=== PATIENT | male | born 1970 | race Caucasian/White ===

== ENCOUNTER 2017-10-03 11:10 | Inpatient (IN) ==
[2017-10-03] MEDS ORDERED: SODIUM CHLORIDE 1,000 ML IV STA (11:18)
[2017-10-03] MEDS ORDERED: DILAUDID 2 MG/ML SYRINGE IVP STA (11:19)
[2017-10-03] MEDS ORDERED: ZOFRAN 4 MG/2 ML IVP STA (11:19)
[2017-10-03 11:36] LABS: BASOPHILS # (AUTO) 0.1 K/uL (0-0.2); BASOPHILS % (AUTO) 0.5 % (0.0-3.0); EOSINOPHILS # (AUTO) 0.5 K/ul (0.0-0.7); EOSINOPHILS % (AUTO) 4.7 % (0.0-7.0); HEMATOCRIT 49.5 % (42.0-52.0); HEMOGLOBIN 16.7 g/dl (14.0-18.0); IMMATURE GRANULOCYTE % (AUTO) 0.3 % (0.0-5.0); LYMPHOCYTES # (AUTO) 2.4 K/uL (0.60-3.4); LYMPHOCYTES % (AUTO) 23.6 (10.0-50.0); MEAN CORPUSCULAR HEMOGLOBIN 29.1 pg (27.0-31.0); MEAN CORPUSCULAR HGB CONC 33.7 (31.8-35.4); MEAN CORPUSCULAR VOLUME 86.2 fl (80.0-94.0); MONOCYTES # (AUTO) 0.6 K/uL (0.4-2.0); MONOCYTES % (AUTO) 6.1 (0-10); NEUTROPHILS # (AUTO) 6.6 K/ul (2.0-6.9); NEUTROPHILS % (AUTO) 64.8; PLATELET COUNT 316 10^3/uL (140-440); RED BLOOD COUNT 5.74 10^6/ul (4.70-6.10); WHITE BLOOD COUNT 10.16 K/ul (4.2-10.2)
[2017-10-03 11:59] LABS: ALBUMIN 3.5 g/dL (3.4-5.0); ALBUMIN/GLOBULIN RATIO 0.88; ANION GAP 13.3; BILIRUBIN,TOTAL 0.4 mg/dL (0.00-1.20); BUN/CREATININE RATIO 12.87; CREATININE 1.01 mg/dL (0.60-1.10); POTASSIUM 4.3 mmol/L (3.5-5.1); TOTAL PROTEIN 7.5 g/dL (6.4-8.2)
[2017-10-03 12:06] LABS: CREATINE KINASE 98 U/L; ERYTHROCYTE SEDIMENTATION RATE 11 mm/hr (0-15); ESR INTERNAL QC INTERNAL QC VALID
[2017-10-03] MEDS ORDERED: MORPHINE 2 MG/ML SYRINGE IVP STA (12:33)
[2017-10-03 12:38] LABS: ADD URINE MICROSCOPIC YES; BILIRUBIN,URINE Negative (NEGATIVE); KETONES,URINE Negative (NEGATIVE); LEUKOCYTE ESTERASE ,URINE Negative (NEGATIVE); NITRITE,URINE Negative (NEGATIVE); PH,URINE 5.5 (5-9); PROTEIN,URINE Negative (NEGATIVE); URINE, BLOOD Trace-lysed (NEGATIVE)
--- NOTE | 2017-10-03 13:06 | CT ---
EXAM: CTA chest with contrast using PE protocol. TECHNIQUE: Helical CTA of the chest was performed with contrast in axial plane with coronal and sagit ranjeet reconstructions and separate work station 3-D renderings. COMPARISON: None HISTORY: Chest pain. Elevated D-dimer FINDINGS: There are no filling defects in the pulmonary arteries to the level of the subsegmental branches. The re is no sign of ventricular strain. There is a focal area of consolidation seen in the lateral aspec t of the right lower lobe. There is a small left-sided effusion with some associated atelectasis. T here is no pathologic supraclavicular, axillary, mediastinal or hilar adenopathy. There is no pericardial effusion or pneumothorax. The aorta demonstrates mild atherosclerotic calcifi cations with no dissection or aneurysm. Upper abdomen per CT abdomen pelvis report today. There are bilateral right renal arteries. There are no acute osseous abnormalities. IMPRESSION: 1. No evidence for pulmonary embolus. 2. Patchy area of consolidation in the right lower lobe and small left pleural effusion.
--- NOTE | 2017-10-03 13:11 | CT ---
EXAM: CT abdomen pelvis with contrast TECHNIQUE: Helical axial CT of the abdomen and pelvis was performed with contrast with coronal and s agittal reconstructions. COMPARISON: CT angiogram of the chest from today HISTORY: Left upper quadrant pain FINDINGS: There is no acute abnormality in the abdomen or pelvis.. Specifically there is no mesenteric inflamma tion, free air, free fluid or bowel wall thickening or edema or pathologic lymph nodes or obstruction or ileus. The liver, spleen, pancreas,and adrenal glands show no acute abnormality. There is a consolidation i n the right lower lung field laterally as well as a left-sided effusion with some atelectasis. There is no hiatal hernia. The gallbladder is normal with no stones or inflammation. There is no biliary o r pancreatic ductal dilatation. There are no suspicious renal masses or large cysts and no hydronephrosis. There are no kidney stones . Both ureters demonstrate normal course and caliber. There is no filling defect in the urinary blad bryant. The right kidney demonstrates atrophy and extensive lobulation probably on the basis of chronic scarring or previous infection. There is a small cyst in the mid pole left kidney. There is prompt and symmetric renal uptake and excretion of contrast bilaterally. The appendix is retrocecal and contacts the tip of the liver. There are no colonic diverticula. Ther e are no abdominal wall hernias. There is advanced calcific atherosclerosis of the aorta and iliac ve ssels. There is no aneurysm. There are no acute osseous abnormalities. There is a fat-containing ing uinal hernia on the right. IMPRESSION: 1. No acute abnormality in the abdomen or pelvis. 2. Left-sided effusion and atelectasis. This may be related to stated history of left upper quadran t pain. 3. Small right basilar consolidation. 4. Retrocecal appendix which contacts the liver. If the patient ever develops appendicitis patient could present with atypical symptoms such as right upper quadrant pain as a result. 5. Atrophy and scarring of the right kidney perhaps due to prior recurrent infection. 6. Atherosclerosis.
--- NOTE | 2017-10-03 13:30 | ED.PDOC ---
General ED Provider: Dr. MAURICIO RIVERA-ER Chief Complaint: Abdominal Pain Stated Complaint: hes been coughing --hurting left upper quad--denies fevr or chills Time Seen by Physician: 11:15 Mode of Arrival: Walk-In Information Source: Patient, Family Exam Limitations: No limitations Nursing and Triage Documentation Reviewed and Agree: Yes Respiratory Complaint Exam - Respiratory Complaint/Exam Onset/Duration: 48 hrs Symptoms Are: Still present Timing: Constant Initial Severity: Mild Current Severity: Moderate Location: Chest Character: Reports: Non-productive cough Alleviating: Reports: None Associated Signs and Symptoms: Reports: Pleuritic chest pain, URI. Denies: Rapid breathing, Dyspnea, Fever, Chills, Chest pain, Wheezing, Hemoptysis, Dizziness, Calf pain, Calf swelling, Edema, Nasal congestion, Hoarseness, Sinus discomfort, Vomiting, Sore throat, Weight loss, Decreased oral intake, Increased thirst, Increased appetite, Increased urination History of Healthcare-Acquired Pneumonia: No Status Asthmaticus Risk Factors: Reports: None Home Oxygen Use: No Recent Stress Test: No Recent Echo/LV Function: No Current Antibiotic Use: No Current Asthma Medication Use: No Respiratory Distress: None Inadequate Respiratory Effort: No Dysphagia Present: No Stridor Present: No JVD Present: No Accessory Muscle Use: No Retractions: Not Present Diminished Breath Sounds: No Sinus Tenderness: None Grunting Respirations: No Kussmaul Respirations: No Differential Diagnoses: Pneumonia Non-Traumatic Chest Pain Syncope: EKG Performed Review of Systems - Review Of Systems Constitutional: Reports: No symptoms Eyes: Reports: No symptoms Ears, Nose, Mouth, Throat: Reports: No symptoms Respiratory: Reports: Cough, Short of air Cardiac: Reports: No symptoms GI: Reports: Abdominal pain : Reports: No symptoms Musculoskeletal: Reports: No symptoms Skin: Reports: No symptoms Neurological: Reports: No symptoms Endocrine: Reports: No symptoms Hematologic/Lymphatic: Reports: No symptoms All Other Systems: Reviewed and Negative Past Medical History - Past Medical History Previously Healthy: Yes Endocrine: Reports: None Cardiovascular: Reports: None Respiratory: Reports: None Hematological: Reports: None Gastrointestinal: Reports: None Genitourinary: Reports: None Neuro/Psych: Reports: None Musculoskeletal: Reports: None Cancer: Reports: None - Surgical History General Surgical History: Reports: None - Family History Family History: Reports: None - Social History Smoking Status: Current every day smoker Hx Substance Use: No Alcohol Screening: None Lives: With family Physical Exam - Physical Exam Appearance: Well-appearing, No pain distress, Well-nourished Pain Distress: Mild Eyes: SHRAVAN, EOMI, Conjunctiva clear ENT: Ears normal, Nose normal, Oropharynx normal Neck: Supple Respiratory: Crackles, Rhonchi Cardiovascular: RRR GI/: Soft, Nontender, No masses, Bowel sounds normal, No Organomegaly Musculoskeletal: Normal strength Skin: Warm, Dry, Normal color Neurological: Sensation intact, Motor intact, Reflexes intact, Cranial nerves intact, Alert, Oriented Psychiatric: Affect appropriate, Mood appropriate Interpretation - Radiology Interpretation Radiology Interpretation By: Radiologist Radiology Results: Positive Exam Interpreted: CT Scan - EKG Interpretation Time of EKG #1: 14:15 Rate: Normal Rhythm: Sinus Ectopy: None [place]: NL ST Segment: Normal Interpretation: nsr Re-Evaluation - Re-Evaluation Time of Re-Evaluation: 14:16 Status: Improved Vital Signs Stable: Yes Pain Level: 2 Appearance: NAD Lungs: Clear Skin: Warm and Dry Neuro: Alert and Oriented X3 CV: RRR Physician Notification - Case Discussed Physician Notified: dr sharp Time of Notification: 14:16 Critical Care Note - Critical Care Note Total Time (mins): 0 Course - Course Hematology/Chemistry: 10/03/17 11:23 10/03/17 11:23 Orders, Labs, Meds: Lab Review 10/03/17 10/03/17 10/03/17 11:23 11:23 11:23 WBC 10.16 RBC 5.74 Hgb 16.7 Hct 49.5 MCV 86.2 MCH 29.1 MCHC 33.7 RDW Coeff of Martín 13.1 Plt Count 316 Immature Gran % (Auto) 0.3 Neut % (Auto) 64.8 Lymph % (Auto) 23.6 [place] % (Auto) 6.1 Eos % (Auto) 4.7 Baso % (Auto) 0.5 Immature Gran # (Auto) 0.0 Neut # 6.6 Lymph # 2.4 [place] # 0.6 Eos # 0.5 Baso # 0.1 ESR 11 Puncture Site O2 Saturation ABG pH ABG pCO2 ABG pO2 ABG HCO3 ABG Total CO2 ABG Base Excess Satinder Test FiO2 % Sodium 139 Potassium 4.3 Chloride 105 Carbon Dioxide 25 Anion Gap 13.3 BUN 13 Creatinine 1.01 Estimated GFR (MDRD) 79.00 BUN/Creatinine Ratio 12.87 Glucose 94 Calcium 10.0 Total Bilirubin 0.40 AST 14 L ALT 12 Alkaline Phosphatase 146 H Total Creatine Kinase 98 Troponin I < 0.0100 B-Natriuretic Peptide Total Protein 7.5 Albumin 3.5 Globulin 4.0 Albumin/Globulin Ratio 0.88 Amylase 66 Lipase 41 Urine Color Urine Clarity Urine pH Ur Specific [place] Urine Protein Urine Glucose (UA) Urine Ketones Urine Blood Urine Nitrite Urine Bilirubin Urine Urobilinogen Ur Leukocyte Esterase Urine Microscopic RBC Urine Microscopic WBC Ur Squamous Epith Cells 10/03/17 10/03/17 10/03/17 11:23 12:30 13:26 WBC RBC Hgb Hct MCV MCH MCHC RDW Coeff of Martín Plt Count Immature Gran % (Auto) Neut % (Auto) Lymph % (Auto) [place] % (Auto) Eos % (Auto) Baso % (Auto) Immature Gran # (Auto) Neut # Lymph # [place] # Eos # Baso # ESR Puncture Site Rr O2 Saturation 93.0 L ABG pH 7.371 ABG pCO2 40.8 ABG pO2 68.0 L ABG HCO3 23.6 ABG Total CO2 25 ABG Base Excess -2 Satinder Test + FiO2 % 21.0 Sodium Potassium Chloride Carbon Dioxide Anion Gap BUN Creatinine Estimated GFR (MDRD) BUN/Creatinine Ratio Glucose Calcium Total Bilirubin AST ALT Alkaline Phosphatase Total Creatine Kinase Troponin I B-Natriuretic Peptide 14 Total Protein Albumin Globulin Albumin/Globulin Ratio Amylase Lipase Urine Color Yellow Urine Clarity Clear Urine pH 5.5 Ur Specific [place] 1.010 Urine Protein Negative Urine Glucose (UA) Negative Urine Ketones Negative Urine Blood Trace-lysed Urine Nitrite Negative Urine Bilirubin Negative Urine Urobilinogen 0.2 Ur Leukocyte Esterase Negative Urine Microscopic RBC 0-2 Urine Microscopic WBC 0-2 Ur Squamous Epith Cells Not present Orders Category Date Time Status ABG DRAW REQUEST Stat CARDIO 10/03/17 13:26 Completed EKG-(ED ONLY) Stat CARDIO 10/03/17 11:16 Completed NPO REMINDER: IMAGING ONCE CARE 10/03/17 11:19 Active ED IV/MEDIPORT/POWERPORT .ONCE EMERGENCY 10/03/17 11:18 Active ABG Stat LAB 10/03/17 13:26 Completed AMYLASE Stat LAB 10/03/17 11:23 Completed BLOOD CULTURE (ED ONLY) Stat LAB 10/03/17 13:35 Received BNP [B-TYPE NATRIURETIC PEPTIDE] Stat LAB 10/03/17 11:23 Completed CBC W/ AUTO DIFF Stat LAB 10/03/17 11:23 Completed COMPREHENSIVE METABOLIC PANEL Stat LAB 10/03/17 11:23 Completed CREATINE KINASE Stat LAB 10/03/17 11:23 Completed ESR Stat LAB 10/03/17 11:23 Completed LIPASE Stat LAB 10/03/17 11:23 Completed RAPID FLU A/B Stat LAB 10/03/17 14:14 Uncollected STREP SCREEN Stat LAB 10/03/17 14:14 Uncollected TROPONIN I Stat LAB 10/03/17 11:23 Completed URINALYSIS C & S IF INDICATED Stat LAB 10/03/17 12:30 Completed 0.9 % Sodium Chloride [Saline Flush] MEDS 10/03/17 11:18 Active 1 syr IVF PRN PRN Ceftriaxone Sodium [Rocephin] MEDS 10/03/17 13:44 Discontinued 1 gm .ROUTE .STK-MED ONE Ceftriaxone Sodium [Rocephin] 1 gm MEDS 10/03/17 13:40 Active 0.9 % Sodium Chloride [Sodium Chloride] 50 ml IV ONCE Hydromorphone HCl/Pf [Dilaudid 2 mg/ml Syringe] MEDS 10/03/17 11:19 Discontinued 1 mg IVP ONCE STA Morphine Sulfate [Morphine 2 mg/ml Syringe] MEDS 10/03/17 12:33 Discontinued 4 mg IVP ONCE STA Ondansetron HCl/Pf [Zofran 4 mg/2 ml] MEDS 10/03/17 11:19 Discontinued 4 mg IVP ONCE STA Sodium Chloride 0.9% [Sodium Chloride] 1,000 ml MEDS 10/03/17 11:18 Active IV 100 mls/hr CT ABDOMEN/PELVIS W CONTRAST Stat RADS 10/03/17 11:[address] CHEST PE PROTOCOL Stat RADS 10/03/17 11:18 Completed Medications Generic Name Dose Route Start Last Admin Trade Name Freq PRN Reason Stop Dose Admin Sodium Chloride 1,000 mls @ 100 mls/hr 10/03/17 11:18 10/03/17 11:35 Sodium Chloride IV 10/03/17 21:17 100 mls/hr .Q10H STA Administration Ceftriaxone Sodium 1 gm/ 50 mls @ 75 mls/hr 10/03/17 13:40 10/03/17 13:50 Sodium Chloride IV 10/03/17 14:19 75 mls/hr ONCE STA Administration Sodium Chloride 1 syr 10/03/17 11:18 10/03/17 11:35 Saline Flush IVF 1 syr PRN PRN Administration To flush IV Discontinued Medications Generic Name Dose Route Start Last Admin Trade Name Camq PRN Reason Stop Dose Admin Hydromorphone HCl 1 mg 10/03/17 11:19 10/03/17 11:35 Dilaudid 2 Mg/Ml Syringe IVP 10/03/17 11:20 1 mg ONCE STA Administration Morphine Sulfate 4 mg 10/03/17 12:33 10/03/17 12:40 Morphine 2 Mg/Ml Syringe IVP 10/03/17 12:34 4 mg ONCE STA Administration Ondansetron HCl 4 mg 10/03/17 11:19 10/03/17 11:35 Zofran 4 Mg/2 Ml IVP 10/03/17 11:20 4 mg ONCE STA Administration Vital Signs: Temp Pulse Resp BP Pulse Ox 10/03/17 11:10 98.0 F 84 22 136/101 H 95 Departure - Departure Time of Disposition: 14:16 Disposition: ADMITTED INPATIENT Discharge Problem: Community acquired pneumonia Qualifiers: Laterality: right Lung location: lower lobe of lung Qualified Code(s): J18.1 - Lobar pneumonia, unspecified organism Instructions: Community Acquired Pneumonia (ED) Condition: Good Pt referred to PMD for follow-up: No Allergies/Adverse Reactions: Allergies No Known Allergies Allergy (Verified 10/03/17 11:14) Home Medications: Ambulatory Orders 1 [No Reported Medications] 02/28/16 Disposition Discussed With: Patient, Family
[2017-10-03] MEDS ORDERED: ROCEPHIN 1 GM in SODIUM CHLORIDE 50 ML IV STA (13:40)
[2017-10-03 13:41] LABS: ABG BASE EXCESS -2 (-2.0-2.0); ABG PCO2 40.8 mmHg (35-45); ABG PH 7.371 (7.35-7.45)
[2017-10-03 13:42] LABS: ABG HCO3 23.6 (22.0-26.0); ABG TCO2 25 (22.0-28.0)
[2017-10-03] MEDS ORDERED: ROCEPHIN ONE (13:44)
[2017-10-03] MEDS ORDERED: TYLENOL PO PRN (14:18)
[2017-10-03] MEDS ORDERED: NORCO 10-325 PO PRN (14:28)
[2017-10-03] MEDS ORDERED: MORPHINE 2 MG/ML SYRINGE IVP PRN (14:28)
[2017-10-03] MEDS ORDERED: DECADRON 4 MG/ML SDV ONE (14:28)
[2017-10-03] MEDS ORDERED: ZOFRAN 4 MG/2 ML IVP PRN (14:29)
[2017-10-03 14:40] LABS: FLU INTERNAL QC INTERNAL QC VALID; RAPID FLU A NEGATIVE (NEGATIVE); RAPID FLU B NEGATIVE (NEGATIVE)
[2017-10-03 16:12] VITALS: BMI 25.5
[2017-10-03] MEDS ORDERED: MORPHINE 2 MG/ML SYRINGE ONE (16:26)
[2017-10-03] MEDS: SODIUM CHLORIDE 1,000 ML IV SCH (16:34)
[2017-10-03] MEDS ORDERED: TUSSIONEX PO STA (17:02)
[2017-10-03] MEDS ORDERED: TUSSIONEX PO PRN (17:03)
[2017-10-03] MEDS: DUONEB NEB SCH ×2 (17:11→23:39)
[2017-10-03] MEDS ORDERED: SOLU-CORTEF 250 MG ONE (17:12)
[2017-10-03] MEDS: SOLU-CORTEF 250 MG IVP SCH (17:18)
[2017-10-03] MEDS ORDERED: SOLU-MEDROL 40 MG IVP SCH (21:00)
[2017-10-03] MEDS ORDERED: SOLU-MEDROL 125 MG IVP SCH (21:00)
[2017-10-03] MEDS: TORADOL IVP SCH (22:13)
[2017-10-04] MEDS ORDERED: SOLU-CORTEF 250 MG ONE (02:12)
[2017-10-04] MEDS: SOLU-CORTEF 250 MG IVP SCH ×3 (02:14→21:08)
[2017-10-04] MEDS: DUONEB NEB SCH ×4 (05:00→23:09)
[2017-10-04 05:51] LABS: BASOPHILS % (AUTO) 0.2 % (0.0-3.0); EOSINOPHILS % (AUTO) 0.1 % (0.0-7.0); HEMATOCRIT 44.2 % (42.0-52.0); HEMOGLOBIN 14.8 g/dl (14.0-18.0); IMMATURE GRANULOCYTE % (AUTO) 0.4 % (0.0-5.0); LYMPHOCYTES # (AUTO) 1.5 K/uL (0.60-3.4); LYMPHOCYTES % (AUTO) 13.8 (10.0-50.0); MEAN CORPUSCULAR HEMOGLOBIN 29.1 pg (27.0-31.0); MEAN CORPUSCULAR HGB CONC 33.5 (31.8-35.4); MONOCYTES # (AUTO) 0.3 K/uL (0.4-2.0); NEUTROPHILS # (AUTO) 8.8 K/ul (2.0-6.9); NEUTROPHILS % (AUTO) 82.5; PLATELET COUNT 295 10^3/uL (140-440); RED BLOOD COUNT 5.08 10^6/ul (4.70-6.10)
[2017-10-04 06:20] LABS: ALBUMIN 3.1 g/dL (3.4-5.0); ALBUMIN/GLOBULIN RATIO 0.82; ANION GAP 11.8; BILIRUBIN,TOTAL 0.29 mg/dL (0.00-1.20); BUN/CREATININE RATIO 14.7; CALCIUM 9.8 mg/dL (8.2-10.2); CHOL/HDL RATIO 4.4 (4.5-6.4); CREATININE 1.02 mg/dL (0.60-1.10); POTASSIUM 3.8 mmol/L (3.5-5.1); TOTAL PROTEIN 6.9 g/dL (6.4-8.2)
[2017-10-04] MEDS: SODIUM CHLORIDE 1,000 ML IV SCH (08:54)
[2017-10-04] MEDS: TORADOL IVP SCH ×3 (09:02→21:08)
--- NOTE | 2017-10-04 09:08 | PCM.PROG ---
Attending Provider: ATTENDING PROVIDER: [facility] patient is seen with Meg Montero, Nurse Practitioner. DATE OF SERVICE: 10/04/17 SUBJECTIVE: This 47 year old WHITE/ M was hospitalized 10/03/17. The patient is lying in bed, alert. The patient was admitted yesterday with right lower lobe pneumonia per CT. The patient is a long-time smoker. He has no current PCP. No fever. The patient is offered a Nicotine patch and is agreeable. REVIEW OF SYSTEMS: CONSTITUTIONAL: No night sweats. No fatigue, malaise, lethargy. No fever or chills. HEENT: Eyes: No visual changes. No eye pain. No eye discharge. ENT: No runny nose. No epistaxis. No sinus pain. No odynophagia. No congestion. RESPIRATORY: Cough and congestion. No hemoptysis. No shortness of breath. CARDIOVASCULAR: No angina symptoms. No CHF symptoms. No atypical chest pain for CAD. No palpitations. No orthopnea.. GASTROINTESTINAL: No abdominal pain. No nausea or vomiting. No diarrhea or constipation. No hematemesis. No hematochezia. GENITOURINARY: No urgency. No frequency. No dysuria. No hematuria. No obstructive symptoms. No discharge. No pain. No significant abnormal bleeding. MUSCULOSKELETAL: No musculoskeletal pain; no joint swelling. NEUROLOGICAL: Awake, alert, oriented to time, place and person. No headache. No neck pain. No syncope. No seizures. No dizziness. PSYCHIATRIC: Not anxious. No depression. No suicidal thoughts. No homicidal thoughts. SKIN: No rash. No lesions. No wounds. ENDOCRINE: No unexplained weight loss. No weight gain. HEMATOLOGIC/LYMPHATIC: No anemia. No purpura. No petechiae. No prolonged or excessive bleeding. No palpable lymph nodes. PHYSICAL EXAMINATION: GENERAL: The patient is awake, alert and oriented, sitting in bed in no distress. VITAL SIGNS: Temperature 97.5 F, Pulse 84, Respiratory Rate 12, BP 109/74, Pulse Ox 98% HEENT: Head normocephalic, atraumatic. Eyes: Extraocular muscles are intact. Pupils are equal, round and reactive to light and accommodation. Ears: No lesions. Nose appeared normal. Throat: No exudate or erythema. NECK: Supple. No JVD, no carotid bruit. No lymphadenopathy or thyromegaly. LUNGS: Severely diminished breath sounds. Clear to auscultation. Percussion note normal. Chest symmetrical. HEART: S1, S2, no S3. No murmurs. No cyanosis or clubbing. No ascites. Pulses: Dorsalis pedis and posterior tibial pulses +1 to +2 both sides. ABDOMEN: Soft. Non-tender. Bowel sounds active. No CVA tenderness. No mass felt. EXTREMITIES: No edema. Full range of motion of all extremities, equal. NEUROLOGIC: No focal deficit. Cranial nerves II through XII are grossly intact. No headache, no double vision or headache. SKIN: Not dry. Intact. Turgor-normal. LYMPHATIC: No palpable lymph nodes/no lymphedema. MUSCULOSKELETAL: Normal joints with no swelling. Muscle tone is normal. LAB REVIEW: 10/04/17 05:15 10/04/17 05:15 10/04/17 05:15: Sodium 139, Potassium 3.8, Chloride 107, Carbon Dioxide 24, Anion Gap 11.8, BUN 15, Creatinine 1.02, Estimated GFR (MDRD) 78.00, BUN/ Creatinine Ratio 14.70, Glucose 131 H, Calcium 9.8, Total Bilirubin 0.29, AST 10 L, ALT 10 L, Alkaline Phosphatase 143 H, Total Protein 6.9, Albumin 3.1 L, Globulin 3.8, Albumin/Globulin Ratio 0.82, Triglycerides 86, Cholesterol 166, LDL Cholesterol, Calc 111, VLDL Cholesterol 17, HDL Cholesterol 38, Cholesterol/ HDL Ratio 4.4 L 10/04/17 05:15: WBC 10.60 H, RBC 5.08, Hgb 14.8, Hct 44.2, MCV 87.0, MCH 29.1, MCHC 33.5, RDW Coeff of Martín 12.9, Plt Count 295, Immature Gran % (Auto) 0.4, Neut % (Auto) 82.5, Lymph % (Auto) 13.8, [place] % (Auto) 3.0, Eos % (Auto) 0.1, Baso % (Auto) 0.2, Immature Gran # (Auto) 0.0, Neut # 8.8 H, Lymph # 1.5, [place] # 0.3 L, Eos # 0.0, Baso # 0.0 ASSESSMENT: 1. ACUTE RIGHT LOWER LOBE PNEUMONIA 2. CUSTODIAL SMOKER PLAN: 1. Counseling for smoking done 2. Nicotine patch 3. Continue IV antibiotics Plan and coordination of the patient's care discussed in the presence of Granite Chip Terrazzo Finisher and nurse. CONDITION: STABLE SCRIBED BY: Paco KIMist scribed while in presence of service performed by Dr. Franklin/Meg Montero APRN on 10/04/17 ([id number])
[2017-10-04] MEDS: NICODERM 21 MG TD SCH (09:32)
[2017-10-04] MEDS: ZITHROMAX PO SCH (09:33)
[2017-10-04] MEDS: LOVENOX SUBCUT SCH (09:33)
[2017-10-04] MEDS: ROCEPHIN 1 GM in SODIUM CHLORIDE 50 ML IV SCH (09:35)
[2017-10-05 05:01] LABS: BASOPHILS % (AUTO) 0.1 % (0.0-3.0); HEMOGLOBIN 13.9 g/dl (14.0-18.0); IMMATURE GRANULOCYTE % (AUTO) 0.5 % (0.0-5.0); LYMPHOCYTES % (AUTO) 8.9 (10.0-50.0); MEAN CORPUSCULAR HEMOGLOBIN 28.8 pg (27.0-31.0); MEAN CORPUSCULAR HGB CONC 33.1 (31.8-35.4); MEAN CORPUSCULAR VOLUME 87.1 fl (80.0-94.0); MONOCYTES # (AUTO) 0.4 K/uL (0.4-2.0); MONOCYTES % (AUTO) 3.2 (0-10); NEUTROPHILS # (AUTO) 9.9 K/ul (2.0-6.9); NEUTROPHILS % (AUTO) 87.3; PLATELET COUNT 313 10^3/uL (140-440); RED BLOOD COUNT 4.82 10^6/ul (4.70-6.10)
[2017-10-05] MEDS: SOLU-CORTEF 250 MG IVP SCH ×2 (05:11→12:46)
[2017-10-05] MEDS: TORADOL IVP SCH ×2 (05:12→12:45)
[2017-10-05 05:20] LABS: ALBUMIN 2.8 g/dL (3.4-5.0); ALBUMIN/GLOBULIN RATIO 0.8; ANION GAP 11.3; BILIRUBIN,TOTAL 0.25 mg/dL (0.00-1.20); BUN/CREATININE RATIO 19.54; CALCIUM 9.7 mg/dL (8.2-10.2); CREATININE 0.87 mg/dL (0.60-1.10); POTASSIUM 4.3 mmol/L (3.5-5.1); TOTAL PROTEIN 6.3 g/dL (6.4-8.2)
[2017-10-05] MEDS: DUONEB NEB SCH ×2 (05:25→11:08)
[2017-10-05] MEDS: ROCEPHIN 1 GM in SODIUM CHLORIDE 50 ML IV SCH (08:45)
[2017-10-05] MEDS: NICODERM 21 MG TD SCH (08:46)
[2017-10-05] MEDS: LOVENOX SUBCUT SCH (08:46)
[2017-10-05] MEDS: ZITHROMAX PO SCH (08:46)
[2017-10-05 09:46] VITALS: BP 147/82; TEMP 98.1
--- NOTE | 2017-10-05 10:57 | CM.DICTOOL ---
ADMISSION: 10/03/17 14:23 DISCHARGE: 10/05/17 DATE OF SERVICE: 10/05/17 FINAL DIAGNOSIS COMMUNITY ACQUIRED PNEUMONIA HISTORY OF RIGHT RENAL STENT APPLICATION CURRENT EVERYDAY SMOKER LAST VITALS Temp Pulse Resp BP Pulse Ox 98.1 F 92 H 20 147/82 H 98 10/05/17 09:45 10/05/17 09:45 10/05/17 09:45 10/05/17 09:45 10/05/17 09:45 ACTIVE HOME MEDICATIONS NONE ALLERGIES No Known Allergies Allergy (Verified 10/03/17 11:14) NEW PRESCRIPTIONS: KEFLEX 500 MG, TAKE ONE CAPSULE BY MOUTH EVERY 8 HOURS FOR 7 DAYS PREDNISONE 10 MG, TAKE ONE TABLET BY MOUTH TWICE DAILY WITH FOOD FOR 5 DAYS SMOKING: CURRENT EVERYDAY SMOKER THE PATIENT HAS BEEN PROVIDED EDUCATION/INFORMATION REGARDING SMOKING CESSATION AND THE BENEFITS. HE HAS ALSO BEEN MADE AWARE OF THE ADDED RISK TO HIS CARDIOVASCULAR AND PULMONARY HEALTH. HE HAS NOT COMMITTED TO CESSATION AND WOULD BENEFIT FROM REINFORCEMENT OF THE INFORMATION PROVIDED ONCE IN THE OUTPATIENT SETTING. DISEASE SPECIFIC EDUCATION: PNEUMONIA NEW PRESCRIPTIONS FOLLOW UP LAB REVIEW: 10/05/17 04:30 10/05/17 04:30 10/05/17 04:30: Sodium 142, Potassium 4.3, Chloride 110 H, Carbon Dioxide 25, Anion Gap 11.3, BUN 17, Creatinine 0.87, Estimated GFR (MDRD) 94.00, BUN/ Creatinine Ratio 19.54, Glucose 127 H, Calcium 9.7, Total Bilirubin 0.25, AST 13 L, ALT 11 L, Alkaline Phosphatase 131, Total Protein 6.3 L, Albumin 2.8 L, Globulin 3.5, Albumin/Globulin Ratio 0.80 10/05/17 04:30: WBC 11.40 H, RBC 4.82, Hgb 13.9 L, Hct 42.0, MCV 87.1, MCH 28.8 , MCHC 33.1, RDW Coeff of Martín 13.1, Plt Count 313, Immature Gran % (Auto) 0.5, Neut % (Auto) 87.3, Lymph % (Auto) 8.9 L, [place] % (Auto) 3.2, Eos % (Auto) 0.0, Baso % (Auto) 0.1, Immature Gran # (Auto) 0.1, Neut # 9.9 H, Lymph # 1.0, [place] # 0.4, Eos # 0.0, Baso # 0.0 PLAN: DISCHARGE HOME TODAY RETURN TO [facility] FOR FOLLOW UP ON 10/12/17 AT [address] RUGGIERO NEW MEDICATIONS KEFLEX 500 MG, TAKE ONE CAPSULE BY MOUTH EVERY 8 HOURS FOR 7 DAYS PREDNISONE 10 MG, TAKE ONE TABLET BY MOUTH TWICE DAILY WITH FOOD FOR 5 DAYS ACTIVITY GET PLENTY OF REST AT HOME. GRADUALLY INCREASE YOUR ACTIVITY LEVEL ACCORDING TO YOUR TOLERATION STOP SMOKING DIET HEALTHY HEART SUMMARY THE PATIENT IS ALERT AND ORIENTED X3. HE CURRENTLY RESIDES AT HOME WITH HIS SIGNIFICANT OTHER. HE IS INDEPENDENT WITH ALL ADL'S AND DOES NOT REQUIRE ASSISTANCE WITH AMBULATING, HOMEMAKING OR OTHER DAILY DUTIES. HE DOES NOT UTILIZE ANY HOMEMAKING SERVICES AND DOES NOT DEPEND ON ANY DME. HE DESIRES TO RETURN HOME AT DISCHARGE. THE SKIN TURGOR IS INTACT AND WITHOUT DECUBITUS ULCERS. HYDRATION AND NUTRITION STATUS ARE GOOD. THE PATIENT IS AWARE AND AGREEABLE FOR DISCHARGE PLANS. HE HAS NO PRIMARY CARE PROVIDER. WE HAVE SUGGESTED TO HIM THAT HE MAY BE SEEN AT THE [facility]. HE IS AGREEABLE FOR THIS SUGGESTION AND A FOLLOW UP APPOINTMENT HAS BEEN SCHEDULED. CURRENT CODE STATUS FULL CODE TRESSA FELICIANO APRN IAN FRANKLIN M.D.
--- NOTE | 2017-10-05 10:58 | PCM.PROG ---
Attending Provider: ATTENDING PROVIDER: [facility] This patient is seen with Meg Montero, Nurse Practitioner. DATE OF SERVICE: 10/05/17 SUBJECTIVE: This 47 year old WHITE/ M was hospitalized 10/03/17. The patient is lying in bed, alert. The patient states feeling better wants to go home, eating 100%, has been up and about REVIEW OF SYSTEMS: CONSTITUTIONAL: No night sweats. No fatigue, malaise, lethargy. No fever or chills. HEENT: Eyes: No visual changes. No eye pain. No eye discharge. ENT: No runny nose. No epistaxis. No sinus pain. No odynophagia. No congestion. RESPIRATORY: Cough and congestion. No hemoptysis. No shortness of breath. CARDIOVASCULAR: No angina symptoms. No CHF symptoms. No atypical chest pain for CAD. No palpitations. No orthopnea.. GASTROINTESTINAL: No abdominal pain. No nausea or vomiting. No diarrhea or constipation. No hematemesis. No hematochezia. GENITOURINARY: No urgency. No frequency. No dysuria. No hematuria. No obstructive symptoms. No discharge. No pain. No significant abnormal bleeding. MUSCULOSKELETAL: No musculoskeletal pain; no joint swelling. NEUROLOGICAL: Awake, alert, oriented to time, place and person. No headache. No neck pain. No syncope. No seizures. No dizziness. PSYCHIATRIC: Not anxious. No depression. No suicidal thoughts. No homicidal thoughts. SKIN: No rash. No lesions. No wounds. ENDOCRINE: No unexplained weight loss. No weight gain. HEMATOLOGIC/LYMPHATIC: No anemia. No purpura. No petechiae. No prolonged or excessive bleeding. No palpable lymph nodes. PHYSICAL EXAMINATION: GENERAL: The patient is awake, alert and oriented, lying in bed in no distress. VITAL SIGNS: Temperature 97.5 F, Pulse 61, Respiratory Rate 20, BP 122/72, Pulse Ox 98% HEENT: Head normocephalic, atraumatic. Eyes: Extraocular muscles are intact. Pupils are equal, round and reactive to light and accommodation. Ears: No lesions. Nose appeared normal. Throat: No exudate or erythema. NECK: Supple. No JVD, no carotid bruit. No lymphadenopathy or thyromegaly. LUNGS: Diminished breath sounds bilaterally. Clear to auscultation. Percussion note normal. Chest symmetrical. HEART: S1, S2, no S3. No murmurs. No cyanosis or clubbing. No ascites. Pulses: Dorsalis pedis and posterior tibial pulses +1 to +2 both sides. ABDOMEN: Soft. Non-tender. Bowel sounds active. No CVA tenderness. No mass felt. EXTREMITIES: No edema. Full range of motion of all extremities, equal. NEUROLOGIC: No focal deficit. Cranial nerves II through XII are grossly intact. No headache, no double vision or headache. SKIN: Not dry. Intact. Turgor-normal. LYMPHATIC: No palpable lymph nodes/no lymphedema. MUSCULOSKELETAL: Normal joints with no swelling. Muscle tone is normal. LAB REVIEW: 10/05/17 04:30 10/05/17 04:30 10/05/17 04:30: Sodium 142, Potassium 4.3, Chloride 110 H, Carbon Dioxide 25, Anion Gap 11.3, BUN 17, Creatinine 0.87, Estimated GFR (MDRD) 94.00, BUN/ Creatinine Ratio 19.54, Glucose 127 H, Calcium 9.7, Total Bilirubin 0.25, AST 13 L, ALT 11 L, Alkaline Phosphatase 131, Total Protein 6.3 L, Albumin 2.8 L, Globulin 3.5, Albumin/Globulin Ratio 0.80 10/05/17 04:30: WBC 11.40 H, RBC 4.82, Hgb 13.9 L, Hct 42.0, MCV 87.1, MCH 28.8 , MCHC 33.1, RDW Coeff of Martín 13.1, Plt Count 313, Immature Gran % (Auto) 0.5, Neut % (Auto) 87.3, Lymph % (Auto) 8.9 L, [place] % (Auto) 3.2, Eos % (Auto) 0.0, Baso % (Auto) 0.1, Immature Gran # (Auto) 0.1, Neut # 9.9 H, Lymph # 1.0, [place] # 0.4, Eos # 0.0, Baso # 0.0 ASSESSMENT: 1. ACUTE RIGHT LOWER LOBE PNEUMONIA 2. [facility] SMOKER PLAN: 1. Repeat chest x-ray today 2. Anticipate d/c today 3. D/C IV fluids 4. Keflex 500 t.i.d. times one week 5. Prednisone 10 b.i.d. for 5 days 6. Followup at clinic next week Plan and coordination of the patient's care discussed in the presence of Underwater Trapper and nurse. CONDITION: Stable SCRIBED BY: JIMMY TELLO Translation Director scribed while in presence of service performed by Dr. Franklin/Meg Montero APRN on 10/05/17 ([id number])
--- NOTE | 2017-10-05 12:36 | DI ---
EXAM: Two views of the chest. History: Cough, short of breath, follow up pneumonia Comparison: Chest CT 10/03/2017 Findings: Heart size is normal. Persistent but improving bibasilar lung infiltrates and improving l eft pleural effusion which is now only trace. No pneumothorax. No acute osseous abnormalities. Impression: Persistent but improving bibasilar lung infiltrates and improving left pleural effusion.
[2017-10-05] MEDS: SODIUM CHLORIDE 1,000 ML IV SCH (13:19)
--- NOTE | 2017-10-05 13:37 | HP ---
DATE OF SERVICE: 10/03/17 REASON FOR HOSPITALIZATION: Community acquired pneumonia HISTORY OF PRESENT ILLNESS: 47 year old white male has been sick for 4-5 days. Girlfriend and sister brought him to the emergency room. The patient had left upper quadrant pain. On further workup with CT scan of the chest and abdomen the patient has left lower lobe pneumonia with pleuritic pain. The patient has been given Morphine Sulfate , Hydrocodone, IV Solu-Medrol and has been having some pain. The patient was wheezing, cough and congestion. The patient denied of any fever or chills. PAST MEDICAL HISTORY/PAST SURGICAL HISTORY: History of kidney stone 2015 that was in [place] that he had never visited any emergency room or any doctor offices. REVIEW OF SYSTEMS: CONSTITUTIONAL: No night sweats. No fever or chills. Weakness and fatigue. HEENT: Eyes: No visual changes. No eye pain. No eye discharge. ENT: No runny nose. No epistaxis. No sinus pain. No sore throat. No odynophagia. No ear pain. No congestion. RESPIRATORY: Cough, Congestion with yellowish sputum production. No hemoptysis. No shortness of breath. CARDIOVASCULAR: No angina symptoms. No CHF symptoms. No atypical chest pain for CAD. No palpitations. No orthopnea. Pleuritic pain, left sided sharp shooting with cough. No PND. GASTROINTESTINAL: No abdominal pain. No nausea or vomiting. No diarrhea or constipation. No hematemesis. No hematochezia. Good appetite. GENITOURINARY: No urgency. No frequency. No dysuria. No hematuria. No obstructive symptoms. No discharge. No pain. No significant abnormal bleeding. MUSCULOSKELETAL: No musculoskeletal pain. No joint swelling. No arthritis. NEUROLOGICAL: No headache. No neck pain. No syncope. No seizures. No dizziness. PSYCHIATRIC: Not anxious. No depression. No suicidal thoughts. No homicidal thoughts. SKIN: No rash. No lesions. No wounds. ENDOCRINE: No unexplained weight loss. No weight gain. HEMATOLOGIC/LYMPHATIC: No anemia. No purpura. No petechiae. No prolonged or excessive bleeding. No palpable lymph nodes. PERSONAL/FAMILY/SOCIAL HISTORY: The patient is and lives with the girlfriend. He smokes more than a pack a day and wants to go out to smoke even now. No alcohol abuse. Does all activity of daily living. He denies of any alcohol abuse or drug abuse MEDICATIONS: Doesn't have a primary doctor ALLERGIES: None PHYSICAL EXAMINATION: GENERAL: The patient is oriented to time, place and person. VITAL SIGNS: Temperature 98.2, pulse 62, respiratory rate 20, blood pressure 136/100 and pulse ox 96%. HEENT: Head normocephalic, atraumatic. Eyes: Extraocular muscles are intact. Pupils are equal, round and reactive to light and accommodation. Ears: No lesions. Nose appeared normal. Throat: No exudate or erythema. NECK: Supple. No JVD, no carotid bruit. No lymphadenopathy or thyromegaly. LUNGS: Decreased breath sounds but clear. Mild wheeze mostly in the left side. Percussion note normal. Chest symmetrical. HEART: S1, S2, no S3. No murmurs. No cyanosis or clubbing. No ascites. Pulses: Dorsalis pedis and posterior tibial pulses +1. PMI not palpable on auscultation. No pericardial rub. ABDOMEN: Soft. Nontender. Bowel sounds active. No CVA tenderness. No mass felt. EXTREMITIES: No edema. Full range of motion of all extremities, equal. NEUROLOGIC: No focal deficit. Cranial nerves II through XII are grossly intact. No headache, no double vision or headache. SKIN: Not dry. Intact. Turgor - normal. LYMPHATIC: No palpable lymph nodes/no lymphedema. MUSCULOSKELETAL: Normal joints with no swelling. Muscle tone is normal. LABS: Hgb 16.7, hct 49, WBC 10,000 normal differential, creatinine 1, BUN 132, potassium 4.3, glucose 94. ABG pO2 68, pCO2 40, pH 7.37 with 93% saturation on room air. DKA negative. UA negative. ASSESSMENT: 1. Pneumonia, left lower lobe 2. Severe chronic lung disease 3. Hypertension 4. Smoking PLAN: 1. IV Morphine sulfate 2mg will discontinue that 2. Start Toradol 30 Q 8 3. Solu-Cortef 125mg Q 8 hours 4. Continue antibiotic Rocephin and Zithromax 5. Continue IV fluids, NEBS, Xopenex and Pulmicort 6. Will do T4 TSH 7. Lipid profile 8. Counseling for smoking done 9. BNP was 14 which is normal 10.EKG sinus rhythm with no acute changes 11.Telemetry CONDITION: Stable TIME SPENT: More than 70 minutes. MTDD
--- NOTE | 2017-10-06 08:27 | PN ---
DATE OF SERVICE: 10/04/17 SUBJECTIVE: 47 year old white male hospitalized with acute bronchitis and community acquired pneumonia. The patient's condition has improved. He is up and about afebrile. WBC count is 10,000. PHYSICAL EXAMINATION: HEENT: Head normocephalic, atraumatic. Eyes: Extraocular muscles are intact. Pupils are equal, round and reactive to light and accommodation. Ears: No lesions. Nose appeared normal. Throat: No exudate or erythema. NECK: Supple. No JVD, no carotid bruit. No lymphadenopathy or thyromegaly. LUNGS: Decreased breath sounds but clear to auscultation. Percussion note normal. Chest symmetrical. c HEART: S1, S2, no S3. No murmurs. No cyanosis or clubbing. No ascites. Pulses: Dorsalis pedis and posterior tibial pulses +1 to +2 both sides. ABDOMEN: Soft. Nontender. Bowel sounds active. No CVA tenderness. No mass felt. EXTREMITIES: No edema. Full range of motion of all extremities, equal. NEUROLOGIC: No focal deficit. Cranial nerves II through XII are grossly intact. No headache, no double vision or headache. SKIN: Not dry. Intact. Turgor - normal. LYMPHATIC: No palpable lymph nodes/no lymphedema. MUSCULOSKELETAL: Normal joints with no swelling. Muscle tone is normal. PLAN: 1. Going to be continued IV antibiotics and NEBS. The patient was seen and examined with Nurse Practitioner. TIME SPENT: More than 30 minutes. Plan and coordination of the patient's care discussed in the presence of nurse. JACQUELINE
--- NOTE | 2017-10-07 13:26 | DS ---
DATE OF SERVICE: 10/05/17 FINAL DIAGNOSIS: 1. Community acquired pneumonia 2. History of right renal stent application 3. Current everyday smoker LAST VITALS: Temperature 98.1, pulse 92, respiratory rate 20, blood pressure 147/82 and pulse ox 98%. DISCHARGE INSTRUCTIONS: Discharge home today. Return to [facility] for followup on 10-12-17 at 2pm. Will be seeing Dr. Carrizales. MEDICATIONS AT DISCHARGE: None ALLERGIES: No known allergies NEW PRESCRIPTIONS: Keflex 500mg take one capsule by mouth every 8 hours for 7 days Prednisone 10mg take one tablet by mouth twice daily with food for 5 days DIET INSTRUCTIONS: Healthy Heart ACTIVITY: Get plenty of rest at home. Gradually increase your activity level according to your toleration SMOKING: Current everyday smoker The patient has been provided education/information regarding smoking cessation and benefits. He has also been made aware of the added risk to his cardiovascular and pulmonary health. He has no committed to cessation and would benefit from reinforcement of the information provided once in the outpatient setting. DISEASE SPECIFIC EDUCATION: Pneumonia New Prescriptions Followup HOSPITAL COURSE: 47 year old white male who presented to the emergency room complaining of coughing and shortness of breath. He is a moth exterminator smoker. He has no primary care provider. He is not on any medications. Chest x-ray and CT scan revealed that he had bilateral pneumonia. He has a history of renal stent application due to recurrent kidney stones per the patient. He was placed on Rocephin 1 gram IV daily along with Solu-Medrol 125mg Q 8 hours along with Azithromycin 500mg PO daily times 3 days. The patient was also exhibiting pleuritic type pain on admission describing pain with inspiration, expiration and coughing. Since admission he has been afebrile. His labs have been good. Vital signs has been stable. Today on day of discharge temperature 97.5, heart rate 61, respiratory rate 20, blood pressure 122/72 and pulse ox 98% on room air. His labs are steady with WBC of 11.40 which has improved. Hgb 13.9, hct 42, plt count 313, sodium 142, potassium 4.3, BUN 17 and creatinine 0.87. Repeat chest x -ray was done today which showed improving pneumonia. We will discharge him home today as he has requested this as he is self pay. We will discharge him home on Keflex 500mg three times a day for the next 7 days as well as Prednisone 10mg twice a day for the next 5 days. He is going to followup with the clinic next week for a followup appointment. For the past 24 hours he has been eating 90-100% of his meals. Telemetry showed normal sinus rhythm. He has been up and about talking with no shortness of breath. Pleuritic pain has resolved. TIME SPENT: More than 60 minutes. JACQUELINE
--- NOTE | 2017-10-08 14:22 | PN ---
DATE OF SERVICE: 10/05/17 SUBJECTIVE: 47 year old white male hospitalized with community acquired pneumonia. The patient's condition is improving. Counseling for smoking done. He was up and about. Counseling for smoking done. The patient is to be followed by [facility] in 3-4 days. The patient was discharged on steroids and antibiotics. Side effects of steroids including avascular necrosis of femur discussed. PHYSICAL EXAMINATION: VITAL SIGNS: The patient is afebrile. HEENT: Head normocephalic, atraumatic. Eyes: Extraocular muscles are intact. Pupils are equal, round and reactive to light and accommodation. Ears: No lesions. Nose appeared normal. Throat: No exudate or erythema. NECK: Supple. No JVD, no carotid bruit. No lymphadenopathy or thyromegaly. LUNGS: Decreased breath sounds but clear to auscultation. Percussion note normal. Chest symmetrical. HEART: S1, S2, no S3. No murmurs. No cyanosis or clubbing. No ascites. Pulses: Dorsalis pedis and posterior tibial pulses +1 to +2 both sides. ABDOMEN: Soft. Nontender. Bowel sounds active. No CVA tenderness. No mass felt. EXTREMITIES: No edema. Full range of motion of all extremities, equal. NEUROLOGIC: No focal deficit. Cranial nerves II through XII are grossly intact. No headache, no double vision or headache. SKIN: Not dry. Intact. Turgor - normal. LYMPHATIC: No palpable lymph nodes/no lymphedema. MUSCULOSKELETAL: Normal joints with no swelling. Muscle tone is normal. PLAN: 1. Continue Rocephin and Zithromax The patient was seen and examined with Nurse Practitioner and Ice Cream Dispenser. TIME SPENT: More than 30 minutes. Plan and coordination of the patient's care discussed in the presence of nurse. JACQUELINE
--- NOTE | 2017-10-08 14:34 | PN ---
10/03/17: Level 5 10/04/17: Intermediate 10/05/17: D as in discharge MTDD
== END 2017-10-05 13:15 | disposition home or self-care (01) | DRG 194 ==
LOC: ED 11:10 → MEDSURG B 14:23
PROVIDERS: ADMIT Internal Medicine; ATTEND Internal Medicine
DX: J18.1 Lobar pneumonia, unspecified organism (principal); J91.8 Pleural effusion in other conditions classified elsewhere; R10.12 Left upper quadrant pain; R07.81 Pleurodynia; R06.02 Shortness of breath; F17.200 Nicotine dependence, unspecified, uncomplicated; Z98.890 Other specified postprocedural states; Z87.442 Personal history of urinary calculi
CPT/HCPCS: 36415; 80053; 80061; 81001; 82150; 82550; 82803; 83690; 83880; 84436; 84443; 84484; 85025; 85651; 87040; 87651; 87804; 87880; 93005; 93010; 94640; 96361; 96365; 96375; 99284

== ENCOUNTER 2019-06-26 14:23 | Emergency (ER) ==
[2019-06-26 14:36] VITALS: BP 160/127; TEMP 97.6; BMI 23.0
[2019-06-26] MEDS ORDERED: NORCO 10-325 PO STA (15:17)
--- NOTE | 2019-06-26 16:17 | CT ---
EXAM: CT of the left ankle without contrast History: Left ankle pain and trauma. Technique: Multiplanar CT images through the left ankle were obtained without the administration of IV contrast Findings: No acute fracture or dislocation. Hypertrophic osseous changes adjacent to the medial and lateral malleolus compatible with old ligamentous injury. Mild polyarticular joint space narrowing. Small enthesiophyte at the insertion of the Achilles tendon. A benign bone cyst or hemangioma with in the anterior calcaneus. Mild soft tissue swelling at the ankle. Impression: 1. No acute osseous abnormality. 2. Evidence of old ligamentous injury. 3. Mild soft tissue swelling
--- NOTE | 2019-06-26 16:21 | CT ---
EXAM: CT of the left foot without contrast History: Left foot trauma. Technique: Multiplanar CT images through the left foot were obtained without the administration of I V contrast Findings: No acute fracture or dislocation. Small enthesiophyte at the insertion of the Achilles te ndon. Well corticated ossific densities are seen at the ankle compatible with old ligamentous injury . There is mild soft tissue swelling at the ankle. Impression: No acute osseous abnormality
--- NOTE | 2019-06-26 17:30 | ED.PDOC ---
General ED Provider: Dr. ROSS WHITMORE Chief Complaint: Ankle Pain/Injury Stated Complaint: twisted left ankle has pain Time Seen by Physician: 14:30 (seen with jayson) Mode of Arrival: Wheelchair Information Source: Patient Exam Limitations: No limitations Nursing and Triage Documentation Reviewed and Agree: Yes Does patient meet sepsis criteria?: No System Inflammatory Response Syndrome: Not Applicable Sepsis Protocol: For patient's 13 years and over: Temp is 96.8 and below OR 101 and greater Pulse >90 BPM Resp >20/minute Acutely Altered Mental Status Are patient's symptoms suggestive of a new infection, such as: -Pneumonia -Skin, Soft Tissue -Endocarditis -UTI -Bone, Joint Infection -Implantable Device -Acute Abdominal Infection -Wound Infection -Meningitis -Blood Stream Catheter Infection -Unknown Musculoskeletal Complaint Exam - Ankle/Foot Complaint/Exam Location of Injury: Reports: Left, Ankle, Foot Mechanism of Injury: Reports: Trauma Onset/Duration: today Symptoms Are: Reports: Still present Onset of Pain: Reports: Immediate Initial Severity: Moderate Current Severity: Moderate Location: Reports: Discrete Character: Reports: Aching Alleviating: Reports: Position Aggravating: Reports: Movement Able to Bear Weight: Yes Associated Signs and Symptoms: Reports: Swelling. Denies: Redness, Bruising, Fever, Weakness, Numbness, Tingling Gout Risk Factors: Reports: >40 years old Related Surgical History: Reports: None Achilles Tendon Abnormality: No Tenderness: Present: Lateral malleolus Limited Range of Motion: Present: Inversion Differential Diagnosis: Closed Fracture, Sprain, Strain Review of Systems - Review Of Systems Constitutional: Reports: No symptoms Eyes: Reports: No symptoms Ears, Nose, Mouth, Throat: Reports: No symptoms Respiratory: Reports: No symptoms Cardiac: Reports: No symptoms GI: Reports: No symptoms : Reports: No symptoms Musculoskeletal: Reports: Joint pain (ankle left) Skin: Reports: No symptoms Neurological: Reports: No symptoms Endocrine: Reports: No symptoms Hematologic/Lymphatic: Reports: No symptoms All Other Systems: Reviewed and Negative Past Medical History - Past Medical History Previously Healthy: Yes Endocrine: Reports: None Cardiovascular: Reports: None Respiratory: Reports: None Hematological: Reports: None Gastrointestinal: Reports: None Genitourinary: Reports: None Neuro/Psych: Reports: None Musculoskeletal: Reports: None Cancer: Reports: None - Surgical History General Surgical History: Reports: None - Family History Family History: Reports: None - Social History Smoking Status: Current every day smoker Hx Substance Use: No Alcohol Screening: None - Immunizations Tetanus Shot up to Date: Yes Physical Exam - Physical Exam Appearance: Well-appearing, No pain distress, Well-nourished Eyes: SHRAVAN, EOMI, Conjunctiva clear ENT: Ears normal, Nose normal, Oropharynx normal Respiratory: Airway patent, Breath sounds clear, Breath sounds equal, Respirations nonlabored Cardiovascular: RRR, Pulses normal, No rub, No murmur GI/: Soft, Nontender, No masses, Bowel sounds normal, No Organomegaly Musculoskeletal: Limited ROM (ankle left) Skin: Warm, Dry, Normal color Neurological: Sensation intact, Motor intact, Reflexes intact, Cranial nerves intact, Alert, Oriented Psychiatric: Affect appropriate, Mood appropriate Interpretation - Radiology Interpretation Radiology Interpretation By: Radiologist Radiology Results: No acute changes Exam Interpreted: CT Scan Critical Care Note - Critical Care Note Total Time (mins): 0 Course - Course Orders, Labs, Meds: Orders Category Date Time Status Hydrocodone Bit/Acetaminophen [[place] 10-325] MEDS 06/26/19 15:17 Discontinued 1 tab PO ONCE STA CT ANKLE LEFT WITHOUT CONTRAST Stat RADS 06/26/19 15:[address] FOOT LEFT WITHOUT CONTRAST Stat RADS 06/26/19 15:18 Completed Medications Discontinued Medications Generic Name Dose Route Start Last Admin Trade Name Shaheen PRN Reason Stop Dose Admin Hydrocodone Bitart/Acetaminophen 1 tab 06/26/19 15:17 06/26/19 15:50 [place] 10-325 PO 06/26/19 15:18 1 tab ONCE STA Administration Vital Signs: Temp Pulse Resp BP Pulse Ox 06/26/19 14:23 97.6 F 84 20 160/127 H 96 Departure - Departure Time of Disposition: 17:30 Disposition: HOME SELF-CARE Discharge Problem: Ankle pain Sprain of left ankle Qualifiers: Encounter type: initial encounter Involved ligament of ankle: other ligament Qualified Code(s): S93.492A - Sprain of other ligament of left ankle, initial encounter Instructions: Ankle Sprain (ED) Condition: Good Pt referred to PMD for follow-up: Yes IPMP verified?: No Additional Instructions: Please call your Family Physician as soon as possible to schedule a follow-up appointment. Allergies/Adverse Reactions: Allergies No Known Allergies Allergy (Verified 06/26/19 14:32) Home Medications: Ambulatory Orders 1 [No Reported Medications] 06/26/19 Disposition Discussed With: Patient, Family
== END 2019-06-26 17:52 | disposition home or self-care (01) ==
LOC: ED 14:23
DX: S93.492A Sprain of other ligament of left ankle, initial encounter (principal); X50.1XXA Overexertion from prolonged static or awkward postures, initial encounter; F17.210 Nicotine dependence, cigarettes, uncomplicated
CPT/HCPCS: 99283